=== PATIENT | male | born 1970 | race Caucasian/White ===

== ENCOUNTER 2023-02-21 05:19 | Day surgery (SDC) | payer OTHER, SELFPAY ==
--- OUTSIDE RECORDS SUMMARY | 2023-02-21 05:23 | XMS RPT_ITS | CCD ---
Author Name Unknown Address [address] [place] [address] Organization [facility] Care Team Providers Care Office Systems Technology Instructor Name Role Phone Norma Lee Unavailable Unavailable KRYSTIAN MOE, DR ROB Primary Care Physician KRYSTIAN MOE, DR ROB Primary Care Unavailable KRYSTIAN MOE, DR ROB Attending Unavailable KRYSTIAN MOE, DR ROB Attending Unavailable KRYSTIAN MOE, DR ROB Primary Care Unavailable KRYSTIAN MOE, DR ROB Attending Unavailable KRYSTIAN MOE, DR ROB Primary Care Unavailable Allergies Allergy Classification Reported Allergen(s) Allergy Type Date of Onset Reaction(s) Facility (4 sources) Amoxicillin; Translations: [amoxicillin] Drug Allergy [facility] Work Phone: (4 sources) Penicillin; Translations: [penicillin] Drug Allergy Eruption of skin (disorder) [facility] Work Phone: Medications Current Medications Medication Drug Class(es) Dates Sig (Normalized) Sig (Original) ibuprofen 400 mg oral tablet (4 sources) Nonsteroidal Anti-inflammatory Drug Start: 05-09-2018 take 1 dose by mouth every six hours Advil Dose : 400 mg =, Oral, q6hr Start Date: 05/09/18 Status: Ordered rosuvastatin calcium 40 mg oral tablet (5 sources) HMG-CoA Reductase Inhibitor Start: 08-17-2022 Crestor 40 mg oral tablet Dose : 40 mg = 1 tab(s), Oral, Daily, # 90 tab(s), 3 Refill(s), Pharmacy: [id number], 191, cm, 08/17/22 10:30:00 EDT, Height, kg, 08/17/22 10:30:00 EDT, Dosing Weight Start Date: 08/17/22 Status: Ordered Problems Active Problems Problem Classification Problem Date Documented Da te Episodic/Chronic Anxiety disorders (4 sources) Anxiety 12-11-2018 Chronic Diabetes mellitus without complication (4 sources) Hyperglycemia 01-21-2020 Episodic Disorders of lipid metabolism (8 sources) Familial hypertriglyceridemia; Translations: [Hyperlipidemia] 01-21-2020 Chronic Other male genital disorders (3 sources) Impotence 06-02-2021 Chronic Residual codes; unclassified (3 sources) Family history of cancer of colon 06-02-2021 Episodic Past or Other Problems Problem Classification Problem Date Documented Da te Episodic/Chronic Unclassified (1 source) Patient encounter status; Translations: [Encounter for screening colonoscopy] Results Test Name Value Interpretation Reference Range Facil ity Encounters Encounter Date Encounter Type Care Provider Facility Start: 02-15-2023 End: 02-16-[address] NORMA LEE DO Facility:B Start: 02-15-2023 End: 02-15-[address] NORMA LEE DO [facility] Start: 02-08-2023 End: 02-09-[address] NORMA LEE DO Facility:B Start: 02-08-2023 End: 02-08-[address] NORMA LEE DO [facility] Start: 12-07-2022 End: 12-08-[address] NORMA LEE DO Facility:B Start: 12-07-2022 End: 12-07-[address] NORMA LEE DO [facility] Start: 03-29-2021 End: 04-02-2021 Outreach Lab EARNEST CUMMINGS APRN-CNM [facility] Procedures Date Procedure Procedure Detail Performing Clinician Start: 12-29-2019 Maverick cardona None (qualifier value) [facility] MOISES CUMMINGS DESPATCH CLERK-CNM Immunizations Immunization Date Immunization Notes Care Provider [facility] 11-23-2022 influenza virus vaccine, unspecified formulation DR NORMA LEE DO [facility] 11-23-[address] NORMA LEE DO [facility] 01-11-2021 SARS-CoV-2 (COVID-19 ) mRNA-[address] NORMA LEE DO [facility] 05-19-2020 COVID-19, mRNA, LNP- S, PF, 100 mcg or 50 mcg dose; Translations: [Moderna COVID-19 Vaccine] EARNEST CUMMINGS DESPATCH CLERK-CNM [facility] 04-21-2020 COVID-19, mRNA, LNP- S, PF, 100 mcg or 50 mcg dose; Translations: [Moderna COVID-19 Vaccine] EARNEST CUMMINGS DESPATCH CLERK-CNM [facility] Payers Date Payer Category Payer Unknown [id number] 1970 Unknown [id number] 1970 Unknown [id number] 1970 Unknown [id number] Social History Date Type Detail Facility Assertion Tobacco smoking consumption unknown (finding) -[facility] Work Phone: Tobacco Tobacco Use: chew. Type: [facility] Functional Status Date Assessment Result Facility NEGATED: Highlighted row Functional performance Functional status health issues are not documented Disease [facility] Work Phone: Mental Status Date Assessment Result Facility NEGATED: Highlighted row Cognitive function [Interpretation] Cognitive status health issues are not documented Disease [facility] Work Phone: Evaluation + Plan note 05-05-2020 Laboratory Note Date & Type Note Facility 05-05-2020 Evaluation + Plan note Future Scheduled [id number] Hemoglobin 05/05/20Complete Metabolic Panel 05/05/20 [facility] Evaluation + Plan note Note Date & Type Note Facility Evaluation + Plan note Future Appointments Appointment Date:05/23/2023 09:00:00 AM Scheduled Provider:NORMA LEE DO Location:[facility] Appointment Type: OV [facility] Evaluation + Plan note Note Date & Type Note Facility Evaluation + Plan note Future Appointments Appointment Date:02/22/2023 01:30:00 PM Scheduled Provider:NORMA LEE DO Location:[facility] Appointment Type: OV Appointment Date:05/23/2023 09:00:00 AM Scheduled Provider:NORMA LEE DO Location:[facility] Appointment Type: OV [facility] Hospital course Narrative Note Date & Type Note Facility Hospital course Narrative No data available for this section [facility] Hospital Discharge instructions Note Date & Type Note Facility Hospital Discharge instructions No data available for this section [facility] Progress note Note Date & Type Note Facility Progress note No data available for this section [facility] Summary Purpose Family History No Family History Records Found No data available for this section No data available for this section No data available for this section No Family History Records Found Advance Directives No Advanced Directives Records FoundNo Advanced Directives Records Found Additional Source Comments (unrecognized sect ion and content) No Status Records FoundNo Status Records Found INFORMATION SOURCE (unrecogn ized section and content) DATE CREATED AUTHOR AUTHOR'S CARINE LOFTON 02/16/2023 [facility] ([place]) Patient Care team informatio n (unrecognized section and content) Care Team Personnel Name: NORMA LEE DO Position: P4 Physician - Primary Care Member Role: Primary Care Physician Address: Address: [address] [place] [address] Care Team Related Persons Name: SHADI CHRISTIAN Address: [address] [phone] Address: Temporary [address] [place], [place] [id number] Name: SHANIQUA CHRISTIAN Care Team Personnel Name: NORMA LEE DO Position: P4 Physician - Primary Care Member Role: Primary Care Physician Address: Address: [address] [place] [address] Care Team Related Persons Name: SHADI CHRISTIAN Address: [address] [phone] Address: Temporary [address] [place] [phone] Name: SHANIQUA CHRISTIAN Care Team Personnel Name: NORMA LEE DO Position: P4 Physician - Primary Care Member Role: Primary Care Physician Address: Address: [address] [place] [address] Care Team Related Persons Name: SHADI CHRISTIAN Address: Home [address] [place] [phone] Address: Temporary [address] [place] [phone] Name: SHANIQUA CHRISTIAN FOR RECORDS PERTAINING TO PATIENTS WHO ARE OR HAVE BEEN ENROLLED IN A CHEMICAL DEPENDENCY/SUBSTANCEABUSE PROGRAM, SOME INFORMATION MAY BE OMITTED. This clinical summary was aggregated from multiple sources. Caution should be exercised in using it in the provision of clinical care. This summary normalizes information from multiple sources, and as a consequence, information in this document may materially change the coding, format and clinical context of patient data. In addition, data may be omitted in some cases. CLINICAL DECISIONS SHOULD BE BASED ON THE PRIMARY CLINICAL RECORDS. [facility]. provides no warranty or guarantee of the accuracy or completeness of information in this document.
[2023-02-21 05:45] VITALS: BP 137/83; PULSE 78; RESP 18; TEMP 36.2; O2SAT 96; BMI 32.2
[2023-02-21] MEDS: Lactated Ringers 1,000 ML 15 ML IV (05:56)
--- NOTE | 2023-02-21 06:30 | COLBX_PTH ---
PATHOLOGY RESULTS PATIENT: FLAQUITO CHRISTIAN LOC: EN U#:[id number] AGE/SX: 53/M ROOM: RE02/21/[address]: Dr. Matt Aleman DO : 1970 BED: DIS: 02/21/2023 SPEC #: [id number] RECD: 02/21/23 11:25 STATUS: BEV MARY #: [id number] SHERLEY: 02/21/23 06:[address]: Matt Aleman DEPT: SURGICAL PATHOLOGY RECD BY: Tiffany Huang ENTERED: 02/21/23 11:26 SP TYPE: COLON BX OTHR DR: Dr. Norma Lee DO Tissues: SPLENIC FLEXURE Rectum, NOS Procedures: Surgery Specimen Level IV HEADER OPERATION: Colonoscopy - open access and biopsy PRE-OP DIAGNOSIS: Screening TISSUE SUBMITTED: A - Splenic flexure polyp biopsy, B - Rectal polyp biopsy MICROSCOPIC DIAGNOSIS A. Splenic flexure polyp, biopsy: Tubular adenoma. B. Rectal polyp, biopsy: Tubular adenoma. MARIBEL:john 02/22/2023 MICROSCOPIC DESCRIPTION Slides are reviewed. GROSS DESCRIPTION A - Received in fixative is one container labeled with the patient's name and designated splenic flexure polyp biopsy. The specimen consists of one irregular fragment of light moore soft tissue that measures 0.3 x 0.3 x 0.1 cm. The specimen is totally submitted in one cassette. B - Received in fixative is one container labeled with the patient's name and designated rectal polyp biopsy. The specimen consists of one irregular fragment of light moore soft tissue that measures 0.2 x 0.2 x 0.1 cm. The specimen is totally submitted in one cassette. / MARIBEL:john 02/21/2023 TC:1 CPT: 41420 x2
--- NOTE | 2023-02-21 06:38 | HP.PCM_ITS ---
[facility] - General General Date of Admission: 02/21/23 Date of Service: 02/21/23 Chief Complaint: Screening colonoscopy HPI Narrative FLAQUITO CHRISTIAN, is a 53 M who presents today for screening colonoscopy. He had a colonoscopy approximately 5 years ago and was discovered to have 1 tubular removed on the right side of the colon. His past medical history is only positive for hypercholesterolemia. He does not have any abdominal pain, crampi ng, dizziness, chest pain or shortness of breath. [facility] Medical History (Updated 02/19/23 @ 12:55 by Elly Bardales) Alcohol use Electronic cigarette use Family hx of colon cancer Gastric reflux Heartburn High cholesterol Hx of adenomatous polyp of colon Hyperglycemia Hyperlipidemia Hypertriglyceridemia Sleep apnea Home Medications multivitamin 1 tab PO DAILY 01/07/23 [History Last Taken Unknown] rosuvastatin 40 mg tablet 40 mg PO DAILY 01/07/23 [History Last Taken Unknown] tadalafil 2.5 mg tablet (Cialis) 2.5 mg PO DAILY 02/19/23 [History Last Taken Unknown] Allergy/AdvReac Type Severity Reaction Status Date / Time amoxicillin Allergy Rash Verified 02/21/23 05:44 Penicillins Allergy Rash Verified 02/21/23 05:44 Family History (Updated 01/07/23 @ 10:57 by Makayla De) Grandmother Colon cancer Surgical History (Updated 02/19/23 @ 12:55 by Elly Bardales) History of wisdom tooth extraction Hx of colonoscopy Social History (Updated 01/07/23 @ 10:59 by Makayla De) current occupational status: employed Smoking Status: Current every day smoker tobacco type: e-cigarettes alcohol intake: current alcohol intake frequency: holidays/special occasions only substance use type: does not use ROS Review of Systems ROS Unobtainable: other Constitutional Constitutional: Denies fatigue, fever(s), poor appetite, weight gain or weight loss ENT HEENT: Denies mouth lesions Cardiovascular Cardiovascular: Denies abdominal bloating, abdominal edema or abdominal pain Respiratory/Chest Respiratory/Chest: Denies change in mental status, change in phlegm color, chest congestion or chest tightness Gastrointestinal Gastrointestinal: Denies belching, bloating, change in bowel habits, change in stool character, chewing difficulty, coffee ground emesis, constipation, cramping, diarrhea, dyspepsia, dysphagia, early satiety, excessive flatus, fecal incontinence, heartburn, hematemesis, hematochezia, hemorrhoids, loose stools, melena, nausea, odynophagia, rectal bleeding, tenesmus, vomiting or weight changes Genitourinary Genitourinary: Denies abdominal discomfort, burning urination or itching Musculoskeletal Musculoskeletal: Reports as per HPI; Denies muscle weakness or myalgias Integumentary Integumentary: Denies jaundice Neurologic Neurologic: Denies lack of coordination or weakness Psychiatric Psychiatric: Denies confusion, depression, memory loss, mood swings, paranoia or suicidal ideation Endocrine Endocrinology: Denies systems reviewed and no addt'l complaints, except as documented Hematologic/Lymphatic Hematologic/Lymphatic: Denies anemia, easy bleeding, easy bruising or lymphadenopathy Allergic/Immunologic Allergic/Immunologic: Denies systems reviewed and no addt'l complaints, except as documented Vital Signs Vital Signs Vital Signs: 02/21/23 05:42 02/21/23 05:45 Temperature 97.2 F L Temperature Source Temporal Pulse Rate 78 Respiratory Rate 18 Respiratory Pattern Normal Blood Pressure 137/83 H Blood Pressure Mean 101 Blood Pressure Source Monitor Blood Pressure Position Semi-Fowlers Blood Pressure Location Left Arm Pulse Ox 96 Oxygen Delivery Method Room Air Weight Weight: 258 lb Body Mass Index (BMI) 32.2 Physical Exam Const alert General Appearance: cooperative Orientation / Consciousness: oriented to person HEENT hearing grossly normal bilaterally Head and Scalp: normal to inspection Face and Sinus: face symmetric Nose: external nose normal Mouth: oral and palatal mucosa normal Eyes conjunctivae normal General Eye: normal appearance of both eyes Neck full ROM General: normal visual inspection Lymph Lymphatic: no lymphadenopathy noted Chest inspection of chest normal and palpation of chest normal Chest: symmetrical chest wall rise Resp normal respiratory effort Effort and Inspection: able to speak in complete sentences Cardio regular rate GI non-distended Percussion: normal to percussion Rectal Exam: deferred Neuro Speech: speech normal Gait (Neuro): normal gait Assessment & Plan Assessment/Plan (1) Encounter for screening for malignant neoplasm of colon: PLAN: He was explained alternatives, risk, benefits including outstanding bleeding, infection, sepsis, perforation, need for mergers and . He will have an ASA of 2.
[2023-02-21 07:06] VITALS: BP 107/64; BP 137/83; PULSE 76; RESP 16; TEMP 36.2; O2SAT 94
[2023-02-21 07:10] VITALS: BP 117/79; BP 137/83; PULSE 83; RESP 16; O2SAT 92
--- NOTE | 2023-02-21 07:10 | OP.COLON_ITS ---
Patient Name: Abraham Ott Procedure Date: 02/21/2023 6:13 AM Date of : 1970 Age: 53 Procedure: Colonoscopy Indications: High risk colon cancer surveillance: Personal history of colonic polyps Providers: Matt Aleman DO Referring MD: Matt Aleman DO Medicines: Monitored Anesthesia Care Patient Profile: This is a 53 year old male. Refer to note in patient chart for documentation of history and physical. Last Colonoscopy: 5 years ago. Complications: No immediate complications. Procedure: Pre-Anesthesia Assessment: - Prior to the procedure, a History and Physical was performed, and patient medications and allergies were reviewed. The patient is competent. The risks and benefits of the procedure and the sedation options and risks were discussed with the patient. All questions were answered and informed consent was obtained. Patient identification and proposed procedure were verified by the physician. Mental Status Examination: normal. CV Examination: normal. Prophylactic Antibiotics: The patient does not require prophylactic antibiotics. Prior Anticoagulants: The patient has taken no anticoagulant or antiplatelet agents. After reviewing the risks and benefits, the patient was deemed in satisfactory condition to undergo the procedure. The anesthesia plan was to use monitored anesthesia care (MAC). Immediately prior to administration of medications, the patient was re-assessed for adequacy to receive sedatives. The heart rate, respiratory rate, oxygen saturations, blood pressure, adequacy of pulmonary ventilation, and response to care were monitored throughout the procedure. The physical status of the patient was re-assessed after the procedure. After I obtained informed consent, the scope was passed under direct vision. Throughout the procedure, the patient's blood pressure, pulse, and oxygen saturations were monitored continuously. The Colonoscope was introduced through the anus and advanced to the cecum, identified by appendiceal orifice and ileocecal valve. The colonoscopy was performed without difficulty. The patient tolerated the procedure well. The quality of the bowel preparation was adequate. The terminal ileum, ileocecal valve, appendiceal orifice, and rectum were photographed. Scope In: 6:45:11 AM Scope Withdrawal Time 0 hours 9 minutes 53 seconds Scope Out: 7:00:51 AM Total Procedure Duration Time 0 hours 15 minutes 40 seconds Findings: The perianal and digital rectal examinations were normal. Two sessile polyps were found in the rectum and splenic flexure. The polyps were 1 to 2 mm in size. These polyps were removed with a cold snare. Resection and retrieval were complete. Verification of patient identification for the specimen was done. Estimated blood loss was minimal. Multiple small and large-mouthed diverticula were found in the recto-sigmoid colon, sigmoid colon and descending colon. The exam was otherwise without abnormality on direct and retroflexion views. Impression: - Two 1 to 2 mm polyps in the rectum and at the splenic flexure, removed with a cold snare. Resected and retrieved. - Diverticulosis in the recto-sigmoid colon, in the sigmoid colon and in the descending colon. - The examination was otherwise normal on direct and retroflexion views. Recommendation: - Discharge patient to home. - Resume previous diet. - Continue present medications. - Await pathology results. - Repeat colonoscopy in 5 years for surveillance. Procedure Code(s): --- Professional --- 55627, Colonoscopy, flexible; with removal of tumor(s), polyp(s), or other lesion(s) by snare technique CPT copyright 2021 [employer]. All rights reserved. The codes documented in this report are preliminary and upon production service manager review may be revised to meet current compliance requirements. Matt Aleman DO 02/21/2023 7:09:32 AM This report has been signed electronically. Number of Addenda: 0 Note Initiated On: 02/21/2023 6:13 AM
--- NOTE | 2023-02-21 07:10 | OP.CCLET_ITS ---
02/21/2023 Norma Lee Re : Colonoscopy procedure for Abraham Ott Dear Jesus This procedure was performed on February. My impressions and recommendations are as follows: Impressions : - Two 1 to 2 mm polyps in the rectum and at the splenic flexure, removed with a cold snare. Resected and retrieved. - Diverticulosis in the recto-sigmoid colon, in the sigmoid colon and in the descending colon. - The examination was otherwise normal on direct and retroflexion views. Recommendations : - Discharge patient to home. - Resume previous diet. - Continue present medications. - Await pathology results. - Repeat colonoscopy in 5 years for surveillance. My findings are described in the full procedure note, which is enclosed. If I can be of further assistance, please feel free to contact me at . Sincerely, Matt Aleman, 02/21/2023 7:09:32 AM This report has been signed electronically.
[2023-02-21 07:16] VITALS: BP 114/82; BP 137/83; PULSE 87; RESP 16; TEMP 36.3; O2SAT 93
--- NOTE | 2023-02-21 07:42 | SUR.PHASEII ---
PT WITH [facility] ON MONITOR IN PACU, DR SUBRAMANIAN CALLED. EKG AND LABS ORDERED. WILL REMAIN ON MONITOR UNTIL LABS COME BACK. VSS. NO PAIN NO N/V. PT AWAKE. NOTIFIED.
[2023-02-21 07:43] VITALS: BP 117/91; BP 137/83; PULSE 88; RESP 16; O2SAT 92
[2023-02-21 07:54] LABS: Anion Gap 6 (5-15); BUN 17 mg/dL (7-18); BUN/Creat Ratio 15.3 RATIO (10-20); Calcium,Total 8.7 mg/dL (8.5-10.1); Chloride 105 mmol/L (98-107); Creatinine, Serum 1.11 mg/dL (0.70-1.30); EST Glomerular Filtration Rate 73 mL/min (>60); Est Glom Filt Rate - Afr Amer 89 mL/min (>60); Estimated Creatinine Clearance 90.93 ml/min; Glucose 129 mg/dL (74-106); Magnesium 2.5 mg/dL (1.6-2.6); Potassium 3.8 mmol/L (3.5-5.1); Sodium Level 138 mmol/L (136-145)
--- NOTE | 2023-02-21 08:02 | SUR.PHASEII ---
PER DR SUBRAMANIAN, OK TO LEAVE PACU. WAIT FOR [facility] TO COME BACK BEFORE D/C
[2023-02-21 08:16] LABS: Troponin-I HS 5 pg/mL (3.0-78.0)
[2023-02-21 08:17] VITALS: BP 137/83
--- NOTE | 2023-02-21 08:49 | EKG12_ITS ---
Test Reason : Blood Pressure : / mmHG Vent. Rate : 076 BPM Atrial Rate : 076 BPM P-R Int : 188 ms QRS Dur : 112 ms QT Int : 456 ms P-R-T Axes : 032 -36 020 degrees QTc Int : 513 ms Sinus rhythm with frequent Premature ventricular complexes Left axis deviation Prolonged QT Abnormal ECG No previous ECGs available Confirmed by CLIFTON RONQUILLO, MICHELLE ([id number]), graphics editor JAMISON DOVE ([id number]) on 02/26/2023 10:35:36 AM Referred By: Norma Lee Confirmed By:MICHELLE LAZO MD
== END 2023-02-21 08:19 | disposition home or self-care (01) ==
LOC: EN 05:22 → AC 05:24
PROVIDERS: Anesthesiology; Visit Provider Internal Medicine Gastroenterology
PROC: 0DJD8ZZ Inspection of Lower Intestinal Tract, Via Natural or Artificial Opening Endoscopic (ICD-10-PCS; CPT 45378; principal; 2023-02-21 06:25)
DX: Z12.11 Encounter for screening for malignant neoplasm of colon (principal); K57.30 Diverticulosis of large intestine without perforation or abscess without bleeding; Z86.010 Personal history of colon polyps; Z80.0 Family history of malignant neoplasm of digestive organs; F17.200 Nicotine dependence, unspecified, uncomplicated; E78.5 Hyperlipidemia, unspecified; D12.3 Benign neoplasm of transverse colon; D12.8 Benign neoplasm of rectum
CPT/HCPCS: 45385; 80048; 83735; 84484; 88305; 93005; J7120; J2405